=== PATIENT | male | born 1985 | race Caucasian/White ===

== ENCOUNTER 2020-01-20 10:04 | Emergency (ER) | payer OTHER ==
[~2020-01-20] VITALS: Ht 188 cm; Wt 72.6 kg
[2020-01-20 10:09] VITALS: BP 126/86
--- NOTE | 2020-01-20 10:29 | NUR ---
PT MEDICALLY CLEARED BY FABI CAZARES. D/C TO PD IN STABLE CONDITION.
== END 2020-01-20 10:32 ==
LOC: ER 10:11
DX: Z02.89 Encounter for other administrative examinations (principal)